=== PATIENT | female | born 1960 | race Caucasian/White ===

== ENCOUNTER 2017-03-01 16:33 | Emergency (ER) | payer OTHER ==
[2017-03-01 18:03] VITALS: BP 140/100
--- NOTE | 2017-03-01 18:27 | UC ---
Skin Complaint HPI - HPI Summary HPI Summary: Patient has been treated for what was thought to be rign worm with antifungal cream. however, it is not improving, more lesions appearing on legs and the back of arms - History of Current Complaint Chief Complaint: UCRash Time Seen by Provider: 03/01/17 18:16 Stated Complaint: RASH Hx Obtained From: Patient Hx Last Menstrual Period: 5-6yrs ?: No Onset/Duration: Sudden Onset, Lasting Weeks Skin Exposure Onset/Duration: Weeks Ago Timing: Constant Onset Severity: Mild Current Severity: Mild Character: Pruritus, Raised Aggravating: Nothing Alleviating: Nothing - Allergy/Home Medications Allergies/Adverse Reactions: Allergies Allergy/AdvReac Type Severity Reaction Status Date / Time Naproxen [From Aleve] Allergy Swelling Verified 03/01/17 18:03 Zinc Allergy Swelling Verified 03/01/17 18:03 Home Medications: Home Medications Cholecalciferol [Vitamin D3] 1 tab PO DAILY 03/01/17 [History Confirmed 03/01/17 ] Miconazole Nitrate (Topical) [Antifungal] 2 % EX BID 03/01/17 [History Confirmed 03/01/17] Review of Systems Constitutional: Negative Skin: Rash Eyes: Negative ENT: Negative Respiratory: Negative Cardiovascular: Negative Gastrointestinal: Negative Genitourinary: Negative Motor: Negative Neurovascular: Negative Musculoskeletal: Negative Neurological: Negative Psychological: Negative All Other Systems Reviewed And Are Negative: Yes PMH/Surg Hx/FS Hx/Imm Hx Previously Healthy: Yes Endocrine History Of: Reports: Thyroid Disease - Nika's Cancer History Of: Denies: Breast Cancer - Surgical History Surgical History: Yes Surgery Procedure, Year, and Place: LUMPECTOMY LT BREAST, RT KNEE ACL - Family History Known Family History: Positive: Cardiac Disease - Social History Alcohol Use: Weekly Substance Use Type: None Smoking Status (MU): Never Smoked Tobacco - Immunization History Most Recent Influenza Vaccination: Not the 2015/2016 Season Physical Exam Triage Information Reviewed: Yes Appearance: Well-Appearing, Well-Nourished, Pain Distress Vital Signs: Initial Vital Signs Temp 98.6 F 03/01/17 17:58 Pulse 76 03/01/17 17:58 Resp 20 03/01/17 17:58 BP 140/100 03/01/17 17:58 Vital Signs Reviewed: Yes Eye Exam: Normal Eyes: Positive: Conjunctiva Clear ENT Exam: Normal ENT: Positive: Hearing grossly normal, Pharynx normal, TMs normal Dental Exam: Normal Neck exam: Normal Respiratory Exam: Normal Respiratory: Positive: Chest non-tender, Lungs clear, Normal breath sounds Cardiovascular Exam: Normal Cardiovascular: Positive: RRR, No Murmur, Pulses Normal Abdominal Exam: Normal Abdomen Description: Positive: Nontender, No Organomegaly, Soft Musculoskeletal Exam: Normal Neurological Exam: Normal Psychological Exam: Normal Skin: Positive: Other - multiple patches of raised, scaly red skin on front of legs, back of left arm and upper right thigh Course/Dx - Course Course Of Treatment: hx obtained, exam performed, medication reviewed, steroid prescribed. - Differential Diagnoses - Skin Complaint Differential Diagnoses: Contact Dermatitis, Eczema, MRSA, Urticaria - Diagnoses Provider Diagnoses: psoriatic type lesion. pruritis Discharge - Discharge Plan Condition: Stable Disposition: HOME Prescriptions: Triamcinolone 0.1% OINT(NF) [Kenalog 0.1% OINT(NF)] 1 applic TOPICAL BID #1 tube Patient Education Materials: Eczema (ED) Referrals: Zain Colon MD [Primary Care Provider] - Additional Instructions: Discontinue the antifungal cream. Start the steroid twice a day for 2 weeks. Keep hydrated and use hypoallergenic and highly emolient lotion.
== END 2017-03-01 18:34 | disposition home or self-care (01) ==
LOC: UCCORT 16:33
DX: L40.9 Psoriasis, unspecified (principal); L29.9 Pruritus, unspecified; Z88.6 Allergy status to analgesic agent; E06.3 Autoimmune thyroiditis
CPT/HCPCS: 99212; G0463